=== PATIENT | female | born 1945 | race Caucasian/White ===

== ENCOUNTER 2018-01-17 12:34 | Outpatient (CLI) | payer MEDICARE, OTHER ==
--- NOTE | 2018-01-17 14:28 | BD ---
DEXA Bone Density History: 72-year-old post-menopausal female for screening. Comparison: 05-17-12 Lumbar Spine: BMD (g/cm2) L1 1.124 T-Score: 1.2 L2 1.205 T-Score: 1.6 L3 1.420 T-Score: 3.1 L4 1.368 T-Score: 2.8 L1-L4 1.283 T-Score: 2.1 Femoral Neck: 0.960 T-Score: 1.0 Total Femur: 1.193 T-Score: 2.1 Impression: Normal bone mineral density. POS: YI
== END 2018-01-17 12:35 | disposition home or self-care (01) ==
LOC: BICMAMMO 12:34
PROVIDERS: ATTEND Internal Medicine
DX: Z13.820 Encounter for screening for osteoporosis (principal); Z78.0 Asymptomatic menopausal state
CPT/HCPCS: 77080